=== PATIENT | male | born 1960 | race Two or more races ===

== ENCOUNTER → 2017-03-13 | Outpatient (CLI) | payer OTHER ==
[~2017-03-13] MED LIST: SULI150T39 PO
--- NOTE | 2017-03-13 17:46 | RADRPT ---
PROCEDURE: Right knee radiographs. CLINICAL INDICATION: Right knee pain. TECHNIQUE: Four views. Weight bearing. Frontal, lateral, oblique, and patellar view. COMPARISON: No prior studies are available for comparison. FINDINGS: There is no fracture or dislocation. The soft tissues are normal. There are degenerative changes with osteophytes arising from all 3 joint compartment margins. There is medial joint compartment narrowing and osteophytes. There is no lytic or blastic lesion. There is no radiopaque foreign body. IMPRESSION: 1. Moderate degenerative changes predominately involving the medial joint compartment. 2. Otherwise unremarkable images of the right knee. RPTAT: QQ .Jeffery Dodd MD, MD Date Time Electronically viewed and signed by .Jeffery Dodd MD, on 03/13/2017 17:46 .R/
--- NOTE | 2017-03-14 10:56 | HKNOTE ---
DATE OF SERVICE: 03/13/2017 CHIEF COMPLAINT: Right knee pain. 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 He has previously seen Dr. Natalie Ga. He has had previous corticostero id injection of the right knee with no pain relief. He does not use any assist devices or braces. He denies any groin or back pain. The pain is constant on the inside of his knee. There are no all eviating factors. It is aggravated by walking and climbing stairs. GAIT: Nonantalgic gait, no use of assist devices. RIGHT KNEE EXAMINATION: Neutral alignment, tender over the medial joint line. Nontender over the l ateral joint line, crepitus with passive and active range of motion, 0 to 130 degrees range of motio n, stable to varus/valgus stress. Negative Nik, negative Bhavana, negative anterior and chemist biological ior drawer. MOTOR STRENGTH: 5/5 quadriceps, hamstrings, tibialis anterior. THREE VIEWS OF THE RIGHT KNEE X-RAYS: There is advanced degenerative joint disease of the medial co mpartment with joint space narrowing and marginal osteophytes. MRI RIGHT KNEE: There is advanced osteoarthritis of the medial compartment. IMPRESSION: A 56-year-old male with right knee osteoarthritis. PLAN: We will request authorization for right knee injection. He will return in 3 weeks for an injection. I discussed treatment options including the need for knee compartmental versus total knee arthroplasty in the future. Dictated By: SULY QUINTANILLA/ROSINA Conf#: [id number] DID#: [id number]
== END | disposition home or self-care (01) ==
LOC: HKI 15:31
PROVIDERS: ATTEND Orthopaedic Surgery Adult Reconstructive Orthopaedic Surgery
DX: M17.11 Unilateral primary osteoarthritis, right knee (principal)
CPT/HCPCS: 73564; Z7500; G0463

== ENCOUNTER → 2017-04-02 | Outpatient (CLI) | payer OTHER ==
--- NOTE | 2017-04-03 05:37 | HKNOTE ---
DATE OF SERVICE: 04/02/2017 CHIEF COMPLAINT: Right knee pain. HISTORY OF PRESENT ILLNESS: This is a 57-year-old male with chronic right knee pain. He has had pr evious corticosteroid injections with minimal pain relief. The pain has been worsening. He is not using any assist devices. He denies any groin or back pain. The pain is constant. There were no a lleviating factors. It is aggravated by walking and climbing. GAIT: Nonantalgic gait, no use of assist device. RIGHT KNEE EXAMINATION: Neutral alignment. Tender over the medial joint line, nontender over the l ateral joint line, crepitus with passive and active range of motion, 0 to 130 degrees range of motio n, stable to varus valgus stress, negative Nik, negative anterior drawer, negative posterior melquiades wer, negative Bhavana's. Motor strength 5/5 quadriceps, hamstrings, tibialis anterior, gastric radha eus. IMPRESSION: A 57-year-old male with right knee osteoarthritis. PLAN: After obtaining consent, the right knee was prepped and draped in the usual sterile fashion. An injection of Monovisc was performed through the lateral portal. There were no complications. H e tolerated the procedure well. He was instructed to ice and elevate the right knee. He can take i buprofen for pain control. He will follow up in 6 weeks for reevaluation. Dictated By: SULY QUINTANILLA/ROSINA Conf#: [id number] DID#: [id number]
== END | disposition home or self-care (01) ==
LOC: HKI 15:21
PROVIDERS: ATTEND Orthopaedic Surgery Adult Reconstructive Orthopaedic Surgery
DX: M17.11 Unilateral primary osteoarthritis, right knee (principal)
CPT/HCPCS: 20610; J7327; Z7500; Z7610; G0463

== ENCOUNTER → 2017-06-13 | Outpatient (CLI) | END | disposition home or self-care (01) ==

== ENCOUNTER 2017-11-22 07:23 | Day surgery (SDC) | END 2017-11-22 12:45 | disposition home or self-care (01) ==

== ENCOUNTER 2017-11-23 21:06 | Emergency (ER) | END 2017-11-24 02:30 | disposition home or self-care (01) ==